=== PATIENT | female | born 1980 | race Caucasian/White ===

== ENCOUNTER → 2021-01-16 | Outpatient (CLI) | payer OTHER ==
[~2021-01-16] MED LIST: ASPIRIN CHEWABL81 MG PO; CLARITIN10 MG PO; CYMBALTA60 MG PO; FLUZONE QU60 MCG/015 IM; HUMALOG100 UNIT/1 SQ; LANTUS100 UNIT/1 SC; LANTUS100 UNIT/1 SQ; LASIX20 MG PO; LISINOPRIL10 MG PO; LYRICA75 MG PO; MELATONIN3 MG PO; NITROSTAT 0.40.4 MG SL; PANTOPRAZOLE SO40 MG PO; REGLAN10 MG PO; SYNTHROID75 MCG PO; SYNTHROID88 MCG PO; ULTRAM50 MG PO; ZOCOR20 MG PO
== END ==
LOC: MAMO 13:11 → US 14:00
DX: Z12.31 Encounter for screening mammogram for malignant neoplasm of breast (principal); N63.20 Unspecified lump in the left breast, unspecified quadrant
CPT/HCPCS: 76641-LT; 77066; G0279

== ENCOUNTER 2021-02-04 13:05 | Emergency (ER) | payer OTHER ==
[~2021-02-04 13:05] MED LIST changes: -REGLAN10 MG PO
[2021-02-04 14:19] LABS: HEMOGLOBIN 14.7 gm/dl (12.3-15.3); RED BLOOD COUNT 4.96 M/UL (4.00-5.10); WHITE BLOOD COUNT 9.9 K/UL (4.5-11.0)
[2021-02-04 14:52] LABS: BUN/CREATININE RATIO 12 (0-10)
== END 2021-02-04 19:38 | disposition home or self-care (01) ==
LOC: ER1 13:05
PROVIDERS: Student in an Organized Health Care Education/Training Program
DX: R07.89 Other chest pain (principal); F17.210 Nicotine dependence, cigarettes, uncomplicated; Z79.4 Long term (current) use of insulin; Z79.899 Other long term (current) drug therapy; Z88.5 Allergy status to narcotic agent; Z88.8 Allergy status to other drugs, medicaments and biological substances; Z20.822 Contact with and (suspected) exposure to COVID-19
CPT/HCPCS: 0240U; 36600; 71046; 80053; 82550; 82553; 82803; 82962; 83605; 83690; 83874; 83880; 84484; 84702; 85025; 85379; 93005; 96374; 96375; 99285; J1170; J2765; Q9967

== ENCOUNTER 2021-02-19 15:23 | Emergency (ER) | payer OTHER ==
[2021-02-19 16:39] LABS: HEMOGLOBIN 12.5 gm/dl (12.3-15.3); RED BLOOD COUNT 4.27 M/UL (4.00-5.10); WHITE BLOOD COUNT 12.3 K/UL (4.5-11.0)
[2021-02-19 16:44] LABS: BUN/CREATININE RATIO 18 (0-10)
[2021-02-19] MEDS ORDERED: REGLAN10 MG PO (17:52)
== END 2021-02-19 18:00 | disposition home or self-care (01) ==
LOC: ER1 15:23
PROVIDERS: Emergency Medicine
DX: R10.9 Unspecified abdominal pain (principal); R11.2 Nausea with vomiting, unspecified; I10 Essential (primary) hypertension; E11.9 Type 2 diabetes mellitus without complications; E03.9 Hypothyroidism, unspecified; Z79.899 Other long term (current) drug therapy; Z20.822 Contact with and (suspected) exposure to COVID-19
CPT/HCPCS: 0240U; 80053; 82009; 82803; 83690; 84703; 85025; 96365; 96375; 99284; J2765; Q9967

== ENCOUNTER 2021-02-28 13:31 | Emergency (ER) | payer OTHER ==
[~2021-02-28 13:31] MED LIST changes: +REGLAN10 MG PO
== END 2021-02-28 15:35 | disposition left against medical advice (07) ==
LOC: ER1 13:31
DX: Z53.21 Procedure and treatment not carried out due to patient leaving prior to being seen by health care provider (principal)

== ENCOUNTER 2021-03-20 11:03 | Emergency (ER) | payer OTHER | END 2021-03-20 12:05 | disposition left against medical advice (07) | LOC: ER1 11:03 | DX: Z53.21 Procedure and treatment not carried out due to patient leaving prior to being seen by health care provider (principal) ==

== ENCOUNTER → 2021-08-27 | Outpatient (CLI) | payer OTHER | LOC: KOH-I 08-19 14:00 | DX: R91.8 Other nonspecific abnormal finding of lung field (principal); M25.551 Pain in right hip; M25.552 Pain in left hip; M25.512 Pain in left shoulder | CPT/HCPCS: 71250; 73030; 73522 ==